=== PATIENT | male | born 1955 | race Caucasian/White ===

== ENCOUNTER 2018-07-29 14:11 | Emergency (ER) | payer BC, OTHER ==
[~2018-07-29] VITALS: Ht 172.7 cm; Wt 86.2 kg
[2018-07-29 14:19] VITALS: BP_SYST 139
[2018-07-29] MEDS ORDERED: ONDANSETRON 4 MG ODT TAB PO ONE (15:00)
[2018-07-29] MEDS ORDERED: KETOROLAC TROMETHAMINE 30 MG VIAL IM ONE (15:00)
[2018-07-29] MEDS ORDERED: HYDROcodone/ACETAMIN 7.5-325 MG TAB PO ONE (15:00)
[2018-07-29 16:20] VITALS: BP_SYST 139
== END 2018-07-29 16:20 | disposition home or self-care (01) ==
LOC: SED 14:11
DX: M25.552 Pain in left hip (principal); R03.0 Elevated blood-pressure reading, without diagnosis of hypertension; W06.XXXA Fall from bed, initial encounter; Y93.89 Activity, other specified; Y92.89 Other specified places as the place of occurrence of the external cause; Y99.8 Other external cause status
CPT/HCPCS: 72170; 73502; 96372; 99283; J1885; Q0162